=== PATIENT | female | born 1990 | race Caucasian/White ===

== ENCOUNTER 2019-03-31 15:56 | Emergency (ER) | payer BC ==
[~2019-03-31] VITALS: Ht 160 cm; Wt 61.4 kg
[~2019-03-31 15:56] MED LIST: FLAGYL500 MG PO; VENTOLIN0.09 MG IH
[2019-03-31 15:58] VITALS: BP 122/83; TEMP 98.2
[2019-03-31] MEDS ORDERED: CLEOCIN HCL300 MG PO (16:12)
[2019-03-31] MEDS ORDERED: IBU800 M1 PO (16:12)
[2019-03-31 16:20] VITALS: PULSE 66
== END 2019-03-31 16:18 | disposition home or self-care (01) ==
LOC: COL.ER 15:56
DX: K02.9 Dental caries, unspecified (principal)